=== PATIENT | male | born 1940 | race Caucasian/White ===

== ENCOUNTER → 2016-12-21 | Day surgery (SDC) | payer MEDICARE, BC ==
[~2016-12-21] MED LIST: Lactated Ringers 1,000 ML IV SCH; Propofol 200 MG/20 ML SDV ONE; fentaNYL 100 MCG/2 ML SDV ONE
[2016-12-21 13:13] VITALS: BP 118/72
--- NOTE | 2016-12-22 08:10 | OR ---
DATE OF PROCEDURE: 12/21/2016 PREOPERATIVE DIAGNOSIS: Colon cancer screening. POSTOPERATIVE DIAGNOSES: Diverticulosis and small distal rectal polyp. PROCEDURE PERFORMED: Colonoscopy to the cecum with biopsy resection of small distal rectal polyp. ANESTHESIA: IV anesthesia with monitored anesthesia care. INDICATIONS: This 76-year-old white male is referred for a colonoscopy for colon cancer screening. His says his last colonoscopic exam was done ten years ago. I counseled him for the procedure including risks and alternatives, and he gave his informed consent to proceed. DESCRIPTION OF PROCEDURE: The patient was placed in the left lateral decubitus position. IV anesthesia was administered by the Anesthesia Service. Time-out was held. A rectal exam was performed, which was unremarkable. The flexible video Olympus colonoscope was introduced through his anus, up his rectum, and out his colon all way to the cecum. Once the cecum was reached, the scope was slowly withdrawn examining the mucosa throughout. We saw both right and left-sided diverticula. These were fairly scattered. There was no bleeding or inflammation associated with them. The scope was retroflexed in the rectum with the distal rectum showing a small polyp. This was removed with the biopsy forceps. The scope was then straightened and removed. He tolerated the procedure well. Jaime Hernandez MD /[id number]
== END ==
LOC: JP.SDS 10:13
PROVIDERS: ATTEND Surgery
DX: Z12.11 Encounter for screening for malignant neoplasm of colon (principal); K62.1 Rectal polyp; K57.30 Diverticulosis of large intestine without perforation or abscess without bleeding; I10 Essential (primary) hypertension; E78.00 Pure hypercholesterolemia, unspecified; F41.9 Anxiety disorder, unspecified; F32.9 Major depressive disorder, single episode, unspecified; Z79.899 Other long term (current) drug therapy; Z98.890 Other specified postprocedural states
CPT/HCPCS: 45380; J2704; J3010; J7120; 88305